=== PATIENT | male | born 1985 | race Caucasian/White ===

== ENCOUNTER 2024-07-18 09:31 | Day surgery (SDC) | payer BC ==
[2024-07-18] MEDS ORDERED: LIDOCAINE HCL 1% AMPUL 5 ML IJ ONE (09:32)
[2024-07-18] MEDS ORDERED: Sodium Chloride 0.9(Preservative Free) 10 ML IJ ONE (09:32)
[2024-07-18] MEDS ORDERED: Decadron 4 MG INJ IV ONE (09:32)
[2024-07-18] MEDS ORDERED: DIPRIVAN 200 MG/20 ML IV ONE ×2 (10:47→10:51)
--- NOTE | 2024-07-18 12:15 | XRAY ---
19 seconds of fluoroscopy was used in surgery for a left L3-L5 transforaminal LEV.
--- NOTE | 2024-07-18 12:16 | XRAY ---
6 seconds of fluoroscopy was used in surgery for a left piriformis injection.
--- NOTE | 2024-07-18 12:17 | XRAY ---
Indication: Left L3-L5 transforaminal LEV. Intraoperative fluoroscopy provided for 19 seconds. 5 digital spot images submitted for interpretation demonstrates posterior needle tips projecting over left L3 and L4 nerve roots. Small amount of contrast injected for needle tip placement. Correlate with intraoperative findings/report.
--- NOTE | 2024-07-18 12:20 | XRAY ---
Indication: Left piriformis injection. Intraoperative fluoroscopy provided for 6 seconds. Single digital spot image submitted for interpretation demonstrates posterior needle tip projecting over left piriformis. Small amount of contrast injected for needle tip placement. Correlate with intraoperative findings/report.
== END 2024-07-18 11:30 | disposition home or self-care (01) ==
LOC: SDC-PAIN 09:31
PROVIDERS: ATTEND Psychiatry & Neurology Pain Medicine
DX: M54.16 Radiculopathy, lumbar region (principal); M79.18 Myalgia, other site
CPT/HCPCS: 20552; 64483; 64484; 72100; 72170; 77002; 77003; 93005; J1100; J2704; Q9966